=== PATIENT | male | born 1990 | race Caucasian/White ===

== ENCOUNTER 2022-07-16 13:25 | Emergency (ER) | payer BC, SELFPAY ==
[2022-07-16 13:32] VITALS: BP 138/73; PULSE 72; RESP 16; TEMP 36.8; O2SAT 96; BMI 34.7
--- NOTE | 2022-07-16 13:42 | ED_ITS ---
HPI - General Adult General Time Seen by Provider: 13:42 Date Seen: 07/16/22 Chief complaint: Shoulder Injury/Pain Stated complaint: Left shoulder injury, Fell on it snowboarding Time Seen by Provider: 07/16/22 13:26 Source: patient and RN notes reviewed Mode of arrival: ambulatory Limitations: no limitations History of Present Illness HPI narrative: Patient fell snowboarding last night, injuring his left shoulder. He would like to make sure that there are no fractures. It hurts over the front area of the shoulder. No numbness or tingling. He did not hurt his back, did not hurt his head, no loss of consciousness. No numbness tingling into the arm. He demonstrates are movement as he is talking to me. He can lift the arm up to 90? he is observed moving it around. He has had some prior weightlifting injuries to this left shoulder in just wants to make sure that there is no fracture. Related Data Allergies Allergy/AdvReac Type Severity Reaction Status Date / Time No Known Drug Allergies Allergy Verified 07/16/22 13:31 Review of Systems 2 Narrative: As per HPI PFSH PFSH Social History Smoking Status: Never smoker Do you use any of these nicotine containing products: None Second hand tobacco smoke exposure: Yes How often do you have a drink containing alcohol: never How often do you have six or more drinks on one occasion: Never AUDIT-C Alcohol total score: 0 Non-prescribed substance use: denies use service: No Exam Const: Vital Signs, click to edit/add: Vital Signs - 24 hr 07/16/22 13:32 Temperature 98.3 F Pulse Rate [Pulse Oximeter] 72 Respiratory Rate 16 Blood Pressure [Le ft Upper Arm] 138/73 Pulse Oximetry 96 Oxygen Delivery Me thod Room Air Documenting provider has reviewed patient's vital signs: yes Other: Patient is a 31-year-old male that is alert interactive no apparent distress. No midline tenderness of his neck or thoracic spine. No pain over the scapula. Walking out the left clavicle he has no pain until I hit the left AC joint. This is most definitely tender for him. He he feels the pain is coming from that area of his shoulder. A little further out over the glenohumeral joint I do not feel any particular pain. I am able to mobilize about his shoulder without any difficulty. He can forward flex and abduct his arm. He will get an occasional anterior pain along the AC joint area mobilizing his shoulder. Strength of this left upper extremity is intact, neurovascular intact. On palpation of his right AC joint, he does not have the same tenderness as the left. Do not feel any significant swelling over this left AC. Course Course Hospital Course: Reviewed with patient that clinically this would seem to be his left acromioclavicular joint or AC joint. We will image with x-rays. Have reviewed with him that this usually is about a 3-6 week clinical healing time. I would usually refer to orthopedics to follow this injury. We will see imaging on x- ray. Reevaluation(s) Reevaluation #1: Reviewed with patient his x-ray findings of mild left AC separation. Give him a copy of the report. He would like a dose of ibuprofen, have ordered 600 mg orally. Did offer him a note to be off work but he decline. Reviewed with him that if he guides his activity as mediated by pain, is likely to be fine. Will provide him a sling to use as needed for comfort. Time: 15:01 Vital Signs Vital signs: Initial Vital Signs Temperature 98.3 F 07/16/22 13:32 Temperature Source Temporal Artery Scan 07/16/22 13:32 Pulse Rate 72 07/16/22 13:32 Pulse Rhythm 07/16/22 13:32 Respiratory Rate 16 07/16/22 13:32 Blood Pressure 138/73 07/16/22 13:32 Blood Pressure Mean 94 07/16/22 13:32 Blood Pressure Position Supine 07/16/22 13:32 Pulse Oximetry 96 07/16/22 13:32 Oxygen Delivery Method 07/16/22 13:32 Vital Signs Temperature 98.3 F 07/16/22 13:32 Pulse Rate 72 07/16/22 13:32 Respiratory Rate 16 07/16/22 13:32 Blood Pressure 138/73 07/16/22 13:32 Pulse Oximetry 96 07/16/22 13:32 Oxygen Delivery Method 07/16/22 13:32 Temperature 98.3 F 07/16/22 13:32 Pulse Rate 72 07/16/22 13:32 Respiratory Rate 16 07/16/22 13:32 Blood Pressure 138/73 07/16/22 13:32 Pulse Oximetry 96 07/16/22 13:32 Oxygen Delivery Method 07/16/22 13:32 Medical Decision Making Imaging Data X-ray AC joint: Attestation: I have reviewed the pertinent imaging results. My impression: Can see some mild widening of the left AC joint and my preliminary review. Radiologist's impression: Patient: DIOGO PINZON Facility:?[facility] Patient ID:?[id number] Site Patient ID:?[id number]. Site :?[id number] Study:?XRay Chest Bilateral AC joints-07/16/2022 2:32:08 PM Ordering Physician:?Michel Carcamo Final Report: HISTORY: Fall snowboarding. TECHNIQUE: Frontal view of both AC joints without and with weights. COMPARISON: None. FINDINGS: Mild degenerative changes the left AC joint. Mildly widened the left AC joint compared to the right. No AC joint malalignment otherwise. Normal coracoclavicular distance bilaterally. IMPRESSION: Mild widening of the left AC joint may be from low-grade AC joint injury. Dictated by Yonis Lopez MD @ 07/16/2022 2:41:13 PM (Electronic Signature) Critical Care Time Critical Care Time Critical Care Time: No Discharge Plan Discharge Clinical Impression: Separation of left acromioclavicular joint Patient Disposition: Home, Self-Care Condition: Stable Instructions: Acromioclavicular Separation (ED) Additional Instructions: Call the orthopedic clinic Monday morning at [phone] to get scheduled for a follow-up. Tylenol and ibuprofen per bottle directions as needed for discomfort. Sling as needed for comfort. No weight lifting, minimize any activity that is causing discomfort. Can ice this area over the next couple days to help with any pain. Follow Up/Referrals: Anibal Jerez MD [Primary Care Provider] - Stand Alone Forms: [employer] Info Instructions
--- NOTE | 2022-07-16 13:48 | CRLHL7_ITS ---
For Patients: As a result of the Cures Act, medical imaging exams and procedure reports are released immediately into your electronic medical record. You may view this report before your referring provider. If you have questions, please contact your health care provider. HISTORY: Fall snowboarding. TECHNIQUE: Frontal view of both AC joints without and with weights. COMPARISON: None. FINDINGS: Mild degenerative changes the left AC joint. Mildly widened the left AC joint compared to the right. No AC joint malalignment otherwise. Normal coracoclavicular distance bilaterally. IMPRESSION: Mild widening of the left AC joint may be from low-grade AC joint injury. Dictated by Yonis Lopez MD @ 07/16/2022 2:41:13 PM (Electronically Signed)
[2022-07-16] MEDS: IBUPROFEN 200 MG TABLET 600 MG PO (15:16)
== END 2022-07-16 15:17 | disposition home or self-care (01) ==
PROVIDERS: Emergency Provider Family Medicine; PCP Family Medicine
DX: S43.52XA Sprain of left acromioclavicular joint, initial encounter (principal); V00.311A Fall from snowboard, initial encounter
CPT/HCPCS: 73050; 99283; 99284; A9270

== ENCOUNTER 2023-02-04 17:02 | Emergency (ER) | payer BC, SELFPAY ==
[2023-02-04 17:09] VITALS: BP 154/91; PULSE 70; RESP 18; TEMP 36.2; O2SAT 99; BMI 35.4
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
== END 2023-02-04 18:02 | disposition home or self-care (01) ==
LOC: ED 17:37
PROVIDERS: Emergency Provider Family Medicine; PCP Family Medicine
DX: F41.9 Anxiety disorder, unspecified (principal); F07.81 Postconcussional syndrome
CPT/HCPCS: 99283; 99284